=== PATIENT | male | born 1990 | race Caucasian/White ===

== ENCOUNTER 2022-08-24 09:55 | Inpatient (IN) | payer OTHER, MEDICAID, SELFPAY ==
[2022-08-24 10:07] VITALS: BP 129/87; BP 190/100; PULSE 108; PULSE 96; RESP 16; TEMP 37.4; O2SAT 97; BMI 22.6
--- NOTE | 2022-08-24 10:10 | PC.NURSE ---
per EMS report, pt from [facility] completing a section 35 drug treatment program. at the program he became increasingly psychotic, not taking care of himself - refusing to shower, became suicidal. pt has a hx of schizophrenia. pt denies any hx of SI/HI, drug use, AVH, alcohol use.
--- NOTE | 2022-08-24 10:24 | ECG_ITS ---
Test Reason : MEDICAL CLEARANCE Blood Pressure : / mmHG Vent. Rate : 078 BPM Atrial Rate : 078 BPM P-R Int : 132 ms QRS Dur : 086 ms QT Int : 398 ms P-R-T Axes : 073 063 062 degrees QTc Int : 453 ms Normal sinus rhythm Possible Left atrial enlargement Borderline ECG No previous ECGs available Referred By: Kinga Bello Electronically Signed By:LAUREL HILLS MD
--- NOTE | 2022-08-24 10:31 | ED.PSYCH ---
HPI - Psych General Chief Complaint: Psychiatric Symptoms Stated Complaint: failure to thrive sec 35 Time Seen by Provider: 08/24/22 10:13 Source: patient Mode of arrival: ambulatory Limitations: no limitations History of Present Illness HPI Narrative: Patient is the 32-year-old male c PMHx of schizophrenia who presents to the ED today via EMS as a section 12 for reports of increased psychosis and SI. He is currently at [facility] where he has been completing a section 35 treatment for the past 2 months. He currently has no complaints aside from some anxiety and mild lower back pain that he attributes to being at the program and how they treat him there. He denies any current SI/HI, plans of harming himself, known trauma, depression, hallucinations, IVDU/drug abuse, and ETOH abuse. He denies any fevers, chills, GREWAL, neck pain, cough, chest pain, abdominal pain, N/V/D, dysuria, and hematuria. Reports having a ride and place to stay in the [facility] upon discharge. MD complaint: anxiety Onset (ago): month(s) Duration: constant History of same: No Relieving factors: none Exacerbating factors: none Associated psychiatric symptoms: none Associated symptoms: other (lower back pain) Treatments prior to arrival: none Related Data Home Medications Medication Instructions Recorded Confirmed methadone 10 mg/mL oral concentrate 40 mg PO DAILY 08/24/22 08/24/22 Allergies Allergy/AdvReac Type Severity Reaction Status Date / Time No Known Allergies Allergy Verified 08/24/22 10:24 Review of Systems Review of Systems: Constitutional : No Fever, No Chills ENT/Mouth : No Ear Pain, No Nasal Congestion, No sore throat Eyes: No Eye Pain, No Swelling, No Redness Cardiovascular : No Chest Pain, No SOB Respiratory : No Cough, No Sputum, No Dyspnea Gastrointestinal : No ingestions, No Nausea, No Vomiting, No Diarrhea, No Hematochezia, No Melena Genitourinary : No Dysuria, No Urinary Frequency, No Hematuria Musculoskeletal : + lower back pain, No Myalgias Skin : No Skin Lesions, No rash Neuro : No Weakness, No Numbness, No Paresthesias, No Dizziness, No Headache Psych : + Anxiety, No Depression, No SI, No thoughts of self injury, No HI, No AVH, Heme/Lymph: No Lymphadenopathy Endocrine : No Polyuria, No Polydipsia Yes all other systems are reviewed and are negative [facility] Past Medical History Attestation statement: The following information was validated with the patient. Source: old records reviewed and nursing notes reviewed Social History Social History Advance Directives: No Advance Directives Information Provided: No Physical Exam Vital Signs: Vital Signs: Last Vital Signs Temp 99.3 F 08/24/22 10:07 Pulse 96 08/24/22 10:07 Resp 16 08/24/22 10:07 BP 129/87 08/24/22 10:07 Pulse Ox 97 08/24/22 10:07 O2 Del Method 08/24/22 10:07 BMI result Body Mass Index 22.6 vital signs have been reviewed as normal and appeared to be correct. Blood pressure normal. Heart rate normal. Respiration rate normal. Temperature normal. Oxygen saturation normal. Appearance: Alert. Oriented X3. No acute distress. Head: Normal external exam. Normocephalic. Atraumatic. Eyes: PERRLA. EOMI. Conjunctiva and sclera normal. Eyelids normal. ENT: Moist mucous membranes. No trismus noted. No drooling noted. No muffled voice noted. Neck: Normal inspection. Neck supple. FROM. No adenopathy. Thyroid Normal. No meningeal signs. CVS: Normal heart rate and rhythm. Heart sound normal. No murmurs noted. Pulses normal throughout. Respiratory: No respiratory distress. Painless inspiration. Breath sounds normal. No wheezes/rales/rhonchi noted. Chest nontender. No accessory muscle usage noted or decreased air movement noted. Abdomen: Soft and nontender. Bowel sounds normal in all 4 quadrants. No distention noted. No organomegaly noted. No visible injury noted. Back: Pain with palpation along the lower right back. No CVA tenderness. Full range of motion noted. Skin: Skin warm and dry. Normal skin color. Normal skin turgor. No rashes/lesions/lacerations noted. Extremities: No lower extremity edema. Extremities exhibit normal range of motion. Extremities nontender. Neuro: Oriented X 3. No motor deficit. No sensory deficit. Reflexes normal. CN's II-XII intact bilaterally? Psych: Appearance grossly normal, unkept, mental status normal, speech and movement normal, speech clear. Is cooperative. Normal thought process. Normal thought content. Normal good insight. Judgment good. Course Course Course Narrative: 10:30am - Patient is the 32-year-old male c PMHx of schizophrenia who presents to the ED today via EMS as a section 12 from [facility] where he has been completing section 35 treatment for the past couple months. He currently has no complaints aside from some anxiety and mild lower back pain. Patient denies any SI/HI/auditory visualizations thoughts of self-injury or recent drug or alcohol usage. Plan: Labs, UA, drugs of abuse, COVID swab and re-evaluate. Reevaluation(s) Reevaluation #1: - UA, drug screen negative. COVID negative. EKG shows NSR, 78 bpm, QTc 453. Patient is currently refusing labs, states he does not want to be stabbed by a needle. - CARE Team received a call from [facility]- Pt was assessed by [facility] on 08/21 for decompensation? and psychosis.? Pt was offered psychiatric medication while there but declined. Pt has a diagnosis of Schizophrenia. Pt was found IPLOC. Pt has completed his 90 day treatment at [facility] and does not need to return. Pt is a [facility] bedsearch. Therefore will continue to monitor. Time: 11:00 [facility] - Psych Medical Records Attestation: I reviewed the patient's medical records. Lab Data Attestation: I reviewed the patient's lab results. Labs: Lab Results 08/24/22 08/24/22 08/24/22 Range/Units 10:46 11:10 11:10 Urine Color Yellow Urine Appearance Clear Urine pH 5.5 (5.0-9.0) Ur Specific [place] 1.020 (1.005-1.025) Urine Protein Negative (Neg-Trace) mg/dL Urine Glucose (UA) Negative (Negative) mg/dL Urine Ketones Negative (Negative) mg/dL Urine Blood Negative (Negative) Urine Nitrite Negative (Negative) Ur Leukocyte Esterase Negative (Negative) Urine Opiates Screen Not Detected (Not Detect) Urine Fentanyl Screen Not Detected (Not Detect) Ur Barbiturates Screen Not Detected (Not Detect) Ur Phencyclidine Scrn Not Detected (Not Detect) Ur Amphetamines Screen Not Detected (Not Detect) U Benzodiazepines Scrn Not Detected (Not Detect) Urine Cocaine Screen Not Detected (Not Detect) U Marijuana (THC) Screen Not Detected (Not Detect) COVID-19 (JESSICA) Negative (Negative) COVID-19 Clin Com See Note Discharge Plan Discharge Clinical Impression: Acute anxiety, Schizophrenia Patient Disposition: Admitted As Inpatient Interventions: Admission Worksheet (ED) Last Done: 08/24/22 16:18 Discharge Date/Time: 08/24/22 16:18
--- NOTE | 2022-08-24 10:45 | PC.NURSE ---
pt refusing blood work at this time. Kinga HAGER aware.
--- NOTE | 2022-08-24 10:46 | MHC.CARE ---
CARE Team received a call from [facility]- Pt was assessed by [facility] Crisis on 08/21 for decompensation and psychosis. Pt was offered psychiatric medication while there but declined. Pt has a diagnosis of Schizophrenia. Pt was found IPLOC. Pt has completed his 90 day treatment at [facility] and does not need to return. Pt is a [facility] bedsearch
[2022-08-24] MEDS: diazePAM 2 MG TABLET PO (11:04)
[2022-08-24] MEDS: cloNIDine HCL 0.1 MG TABLET PO (11:04)
[2022-08-24 11:10] LABS: COVID-19 Test Negative (Negative); IDNOW Serial# 55D5AD1C
[2022-08-24 11:24] LABS: Appearance Urine Clear; Color Urine Yellow; Glucose Urine UA Negative (Negative); Leukocyte Esterase Urine Negative (Negative); Nitrite Urine Negative (Negative); PH 5.5 (5.0-9.0); Urine Blood Negative (Negative); Urine Ketones Negative (Negative); Urine Protein Negative (Neg-Trace)
[2022-08-24 11:37] LABS: Amphetamine Screen Urine Not Detected (Not Detect); Barbiturates, Urine Not Detected (Not Detect); Benzodiazepines Screen Urine Not Detected (Not Detect); Cannabinoid Screen Urine Not Detected (Not Detect); Cocaine Screen Urine Not Detected (Not Detect); Fentanyl, urine Not Detected (Not Detect); Opiate Screen Urine Not Detected (Not Detect); Phencyclidine Screen Urine Not Detected (Not Detect)
--- NOTE | 2022-08-24 13:54 | PHA.MEDREC ---
Pharmacy Consult ? Medication Reconciliation Pharmacy has completed the [facility]; woman that I spoke to said she required a release form. Spoke to Swetha in pod who got pt to sign release form and faxed back to facility, then Swetha called me to tell me that the facility was asking us for a current med list. Swetha told me she was told by [facility] that pt got 40mg methadone today and pt should be taking perphenazine 4mg TID. As also annotated in the notes, pt was refusing to take new psych meds and told Swetha that he has not been taking any medications. I only put the 40mg methadone in the med rec as recent claim history doesn't reflect anything current and there is no other way to verify.
--- NOTE | 2022-08-24 13:55 | PC.NURSE ---
pt presents as paranoid and appears to be thought blocking when talking with staff. he has been standing in his room with limited ambulation, he does appear to be gesturing at times and responding to internal stimuli. pt avoidant of staff at the nurses station, occasionally peering at staff suspiciously and will continue to double check and look back at staff. pt is in behavioral control and has been cooperative aside from completing blood work. pt just reports it will hurt to get ,y blood drawn. I'm not doing it . t/w required a release form to send to [facility] to get pts medication verification and pt was very focused on the paperwork he needed to sign, reading every bulletpoint several times. pt at the time, pt also perseverated several times the same questions.
[2022-08-24 18:00] VITALS: RESP 16
[2022-08-24] MEDS: Nicotine Polacrilex 2 MG GUM 4 MG BUCCAL ×2 (19:33→22:50)
--- NOTE | 2022-08-24 20:36 | PC.ADMIT ---
pt is a 32 year old male who presented to [facility] with psychosis. pt has just completed treatment about [facility](completion letter is in belongings in closet) 2 days ago. pt decompensated after not taking his meds for 48 hours after leaving [facility]. pt tox screen is positive for alcohol. pt has a H history of opioid use and takes methadone(which is in the chart and has been verified by the ED) during admission, pt appears paranoid and didn't want to answer questions completely, saying do I have to answer that? . pt seemed to want the admission process to end. pt seems social with other pt and wanted his belongings. pt is from the [facility], so [facility] didn't have too many medical records to pull about his other inpatient stays. pt did not want to talk about his address and his past. pt refused nighttime meds.
[2022-08-25 06:00] VITALS: BP 109/58; PULSE 88; RESP 16; TEMP 36.2; O2SAT 94
[2022-08-25] MEDS: Nicotine Polacrilex 2 MG GUM 4 MG BUCCAL ×4 (06:54→17:34)
[2022-08-25] MEDS: methADONE HCl 20 MG/2 ML ORAL.CONC 40 MG PO (08:09)
--- NOTE | 2022-08-25 11:46 | P.HPPS_ITS ---
HPI Date of Service: 08/25/22 Chief Complaint: Psychosis/PARANOIA Sources of Information: patient interviewed, chart reviewed and crisis/core team assessment reviewed Additional Sources of Information: HOSPITAL NOTES REVIEWED PATIENT REFUSED TO BE INTERVIEWED HPI Subjective Notes: Diggs Warning and Section 12B Healthcare Proxy: No Narrative: THE PATIENT IS A 32-YEAR-OLD MALE REFERRED FROM THE EMERGENCY ROOM INITIALLY REFERRED TO THE EMERGENCY ROOM FROM [facility]. He had been initially assessed by the crisis team at the [facility] and then referred for inpatient treatment The patient had originally been admitted to [facility] on a Section 35 in June of 2022 the patient reportedly been refusing perphenazine at [facility] and had become threatening while there reportedly posturing physically and picking up a plastic knife. According to [facility] the patient was having a difficult time taking care of basic hygiene and according to the crisis evaluate patient began to declined services at [facility] not engage in any groups became increasingly isolated and fearful. Reportedly the patient in the crisis of alcohol has past schizophrenia diagnosis was on perphenazine and there may have been a Banks order and DMH involvement in the past. Patient refused any labs in the emergency room he has refused to sign releases The patient has taken methadone refusing to take perphenazine Past Psychiatric History: Reported history of psychosis DMH involvement was p rescribed perphenazine Medical Evaluation Reviewed: Yes Patient refusing labs [facility] Medical History (Updated 08/25/22 @ 15:30 by Palbo Subramanian MD) Opioid use disorder, severe, on maintenance therapy Narrative: Unknown at this time Family History: Not known Social History: Patient reportedly homeless has had DMH involvement the past his mother is Shara fully note telephone [phone] Substance History: Reported history of intravenous heroin use patient on methadone replacement Trauma History: Unknown Diagnostics Vital Signs (24Hr): Vital Signs - 24 hr 08/24/22 18:00 08/25/22 06:00 Temperature 97.1 F Pulse Rate 88 Respiratory Rate 16 16 Blood Pressure 109/58 L Pulse Oximetry 94 Oxygen Delivery Method Room Air BMI result Body Mass Index 22.6 Labs Labs: Laboratory Results - last 48 hr 08/24/22 08/24/22 08/24/22 10:46 11:10 11:10 Urine Color Yellow Urine Appearance Clear Urine pH 5.5 Ur Specific [place] 1.020 Urine Protein Negative Urine Glucose (UA) Negative Urine Ketones Negative Urine Blood Negative Urine Nitrite Negative Ur Leukocyte Esterase Negative Urine Opiates Screen Not Detected Urine Fentanyl Screen Not Detected Ur Barbiturates Screen Not Detected Ur Phencyclidine Scrn Not Detected Ur Amphetamines Screen Not Detected U Benzodiazepines Scrn Not Detected Urine Cocaine Screen Not Detected U Marijuana (THC) Screen Not Detected COVID-19 (JESSICA) Negative COVID-19 Clin Com See Note Meds/Allergies Meds Home Medications Medication Instructions Recorded Confirmed Type methadone 10 mg/mL oral concentrate 40 mg PO DAILY 08/24/22 08/24/22 History Allergies Allergies Allergy/AdvReac Type Severity Reaction Status Date / Time No Known Allergies Allergy Verified 08/24/22 10:24 Mental Status Exam Mental Status Exam Narrative: The patient is ambulating up and down the [place] he is dressed in brown hooded sweat shirt he is diaphoretic when seen 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 Refused to answer questions regarding safety to himself or others hallucinations delusional material. Insight judgment impaired impulse control fair he was not directly threatening at this time Assessment & Plan Assessment & Plan (1) Chronic schizophrenia with acute exacerbation: Status: Acute Code(s): F20.9 - Schizophrenia, unspecified Assessment and Plan: Continue perphenazine encourage medication compliance get additional history (2) Opioid use disorder, severe, on maintenance therapy: Status: Acute Code(s): F11.20 - Opioid dependence, uncomplicated Plan Patient admitted on a Section 12 B try and get additional history including medication diagnosis risk history encourage medication acceptance encourage laboratory evaluation Try to educate patient regarding status of his admission on a 12 b and diggs warning. Trying get additional information regarding diagnosis history of treatment. Reportedly the patient has had DMH in the past would most likely benefit from long-acting injectable continue methadone assess safety to himself and others. Patient fearful intense paranoia and irritability monitor food and fluid intake may need to file for treatment plan and section 7/8 this point patient unable to engage and treatment and develop any kind of safety plan. Had intermittently been refusing food Patient educated on: other (12 b status diggs warning) Informed Consent: further education needed Reason for continued inpatient stay Substantial Risk for: harm to others, inability to function and rapid decompensation
[2022-08-25 17:15] VITALS: BP 142/89; PULSE 100; RESP 16; TEMP 36.6; O2SAT 96
[2022-08-26] MEDS: Nicotine Polacrilex 2 MG GUM 4 MG BUCCAL ×5 (01:38→23:54)
[2022-08-26] MEDS: methADONE HCl 20 MG/2 ML ORAL.CONC 40 MG PO (08:24)
[2022-08-26] MEDS: LORazepam 1 MG TABLET 2 MG PO ×3 (11:45→23:54)
--- NOTE | 2022-08-26 17:22 | P.PNPSI_ITS ---
Subjective Subjective Date of Service: 08/26/22 Reason For Visit: Psychosis/PARANOIA Subjective Notes: Section 12B Healthcare Proxy: No Guardianship: No Interim History: The patient is pacing restless increasingly diaphoretic minimally engaged refusing to discuss any issues related to treatment or discharge. Asking about increasing methadone in case he is tortured. Makes oblique comments about being harrased generally refused to discuss anything with this journalists and other writers refused to discuss what he would do after discharge or how he could continue methadone stating it is personal patient with periods of agitation refusing perphenazine Repeatedly asking for Ativan refusing perphenazine Medication Compliance: No Mental Status Exam Mental Status Exam Narrative: The patient is ambulating up and down the [place] he is dressed in brown hooded sweat shirt he is diaphoretic minimally engaged saying he did not want to speak to this journalists and other writers how everything is private mood anxious irritable pacing restless briefly references statements about being harrased needing medication for this impulse control appears tenuous Irritable reactive suspicious minimal insight Diagnostics Vital Signs (24Hr): BMI result Body Mass Index 22.6 Medications Medications Current Medications Acetaminophen (Acetaminophen 325 Mg Tablet) 650 mg PO Q6H PRN PRN Reason: Headache/Pain Mild Scale (1-3) Al Hydroxide/Mg Hydroxide (Magnesium Hydrox/Alum Hydrox 30 Ml Oral.Susp) 30 ml PO Q6H PRN PRN Reason: Heartburn/Nausea Diphenhydramine HCl (Diphenhydramine Hcl 25 Mg Capsule) 50 mg PO Q4H PRN PRN Reason: agitation Haloperidol (Haloperidol 5 Mg Tablet) 5 mg PO Q4H PRN PRN Reason: agitation Hydroxyzine HCl (Hydroxyzine Hcl 25 Mg Tablet) 25 mg PO Q6H PRN PRN Reason: Anxiety Lorazepam (Lorazepam 1 Mg Tablet) 2 mg PO Q4H PRN PRN Reason: agitation Last Admin: 08/26/22 16:07 Dose: 2 mg Magnesium Hydroxide (Milk Of Magnesia 30 Ml Oral.Susp) 30 ml PO DAILY PRN PRN Reason: Constipation Methadone HCl (Methadone Hcl 20 Mg/2 Ml Oral.Conc) 40 mg PO DAILY DERECK Last Admin: 08/26/22 08:24 Dose: 40 mg Nicotine Polacrilex (Nicotine Polacrilex 2 Mg Gum) 4 mg BUCCAL Q2H PRN PRN Reason: Nicotine Cravings Last Admin: 08/26/22 16:00 Dose: 4 mg Perphenazine (Perphenazine 4 Mg Tablet) 4 mg PO BID DERECK Last Admin: 08/26/22 08:34 Dose: Not Given Trazodone HCl (Trazodone Hcl 50 Mg Tablet) 50 mg PO BEDTIME PRN PRN Reason: Insomnia Allergies Allergies Allergy/AdvReac Type Severity Reaction Status Date / Time No Known Allergies Allergy Verified 08/24/22 10:24 Assessment & Plan Assessment & Plan (1) Chronic schizophrenia with acute exacerbation: Status: Acute Code(s): F20.9 - Schizophrenia, unspecified Assessment and Plan: Continue perphenazine encourage medication compliance get additional history (2) Opioid use disorder, severe, on maintenance therapy: Status: Acute Code(s): F11.20 - Opioid dependence, uncomplicated Plan Patient paranoid agitated anxious on a Section 12 B will most likely need to file for treatment plan section 7/8 paranoid irritable easily agitated focus on methadone and benzodiazepines refusing antipsychotic treatment unwilling to have labs or to engage regarding getting history or discharge planning feeling like he is going to be harmed I spent minutes with the patient and/or on the patient floor today, greater than?50% of which was spent counseling/coordinating care. Reason for contiued inpatient stay Substantial Risk for: inability to function and rapid decompensation
[2022-08-27] MEDS: Nicotine Polacrilex 2 MG GUM 4 MG BUCCAL ×3 (05:26→13:01)
[2022-08-27] MEDS: LORazepam 1 MG TABLET 2 MG PO (05:26)
[2022-08-27 06:00] VITALS: BP 120/91; PULSE 72; TEMP 37.3; O2SAT 98
[2022-08-27] MEDS: methADONE HCl 20 MG/2 ML ORAL.CONC 40 MG PO (08:59)
--- NOTE | 2022-08-27 09:06 | P.PNPSI_ITS ---
Subjective Subjective Date of Service: 08/27/22 Reason For Visit: Psychosis/PARANOIA Interim History: Patient is on a 12 b which expires today Talked with patient today. Although guarded and irritable he was willing to engage and demonstrated a linear and organized thought process. He denies any SI or HI. He denies auditory hallucinations. He says he does not want medication at all and shares appropriately that he is bothered that staff keeps harassing him about this when he has already said no; he also shared he read about his rights in the hand book and clarified that he is allowed to say no to which telegraphic typewriter operator chief agreed. Patient said he never wanted to be here in the and that they sent him here from [facility] where he did not want to be either. He knows 12b is due today and he wants discharge. Patient says has a place to stay at his friend's; he reports he gets methadone at [facility], will follow up with them on his own and does not want or need hospital to assist. While Patient clearly does not want to interact with staff, he clearly demonstrates that he is able to engage and able to be organized. Patient's mother came to the unit yesterday and visited with patient. To better assess his safety, Deputy Fire Marshal called to hear her report, though telegraphic typewriter operator chief did not give out any information. She said he is the exact same as he was before he went to [place] and that he is at his baseline. She is frustrated with him because of his chronic substance abuse which she cites as the reason for his decline; she shared until 10 years ago, he was previously on medications for about 5 years and did very well, stable, had his own apartment, pay his own bills, was a pleasure to be around and took good care of himself and his things. She says once he got addicted to heroin he stopped taking his medications saying he did need them anymore. She reports that for the past 10 years, off all medications, he has been living on his own. Sometimes she has let him stay with her but because he continued to use in her house and steal from her to pay for drugs, she no longer allows this. She reports that he is indeed able to take care of himself in the community; he always finds a place to sleep and mostly goes in-between staying at different friends houses; he is consistently able to get himself food and appropriately uses food stamps. She denies that he has ever been aggressive towards her and that she has never been afraid of him. She also says that he is never been aggressive in the community either. She says that he is odd and will walk down the street talking and laughing to himself however avoids confrontations. She shared that few months ago, he was laughing hysterically and someone on the street said something challenging to him; patient responded with a verbal threat back, however he did so as he was walking away on his own. The police were later called, found him to be intoxicated and picked him up; he was assessed and the court doctor and bar helper agreed that he was appropriate for section 35 rather than inpatient psychiatric unit which is how he got to [place]. Diagnostics Vital Signs (24Hr): BMI result Body Mass Index 22.6 Medications Medications Current Medications Acetaminophen (Acetaminophen 325 Mg Tablet) 650 mg PO Q6H PRN PRN Reason: Headache/Pain Mild Scale (1-3) Al Hydroxide/Mg Hydroxide (Magnesium Hydrox/Alum Hydrox 30 Ml Oral.Susp) 30 ml PO Q6H PRN PRN Reason: Heartburn/Nausea Diphenhydramine HCl (Diphenhydramine Hcl 25 Mg Capsule) 50 mg PO Q4H PRN PRN Reason: agitation Haloperidol (Haloperidol 5 Mg Tablet) 5 mg PO Q4H PRN PRN Reason: agitation Hydroxyzine HCl (Hydroxyzine Hcl 25 Mg Tablet) 25 mg PO Q6H PRN PRN Reason: Anxiety Lorazepam (Lorazepam 1 Mg Tablet) 2 mg PO Q4H PRN PRN Reason: agitation Last Admin: 08/27/22 05:26 Dose: 2 mg Magnesium Hydroxide (Milk Of Magnesia 30 Ml Oral.Susp) 30 ml PO DAILY PRN PRN Reason: Constipation Methadone HCl (Methadone Hcl 20 Mg/2 Ml Oral.Conc) 40 mg PO DAILY [facility] Last Admin: 08/27/22 08:59 Dose: 40 mg Nicotine Polacrilex (Nicotine Polacrilex 2 Mg Gum) 4 mg BUCCAL Q2H PRN PRN Reason: Nicotine Cravings Last Admin: 08/27/22 05:26 Dose: 4 mg Perphenazine (Perphenazine 4 Mg Tablet) 4 mg PO BID [facility] Last Admin: 08/26/22 21:00 Dose: Not Given Trazodone HCl (Trazodone Hcl 50 Mg Tablet) 50 mg PO BEDTIME PRN PRN Reason: Insomnia Allergies Allergies Allergy/AdvReac Type Severity Reaction Status Date / Time No Known Allergies Allergy Verified 08/24/22 10:24 Assessment & Plan Assessment & Plan (1) Chronic schizophrenia with acute exacerbation: Status: Acute Code(s): F20.9 - Schizophrenia, unspecified Assessment and Plan: Continue perphenazine encourage medication compliance get additional history (2) Opioid use disorder, severe, on maintenance therapy: Status: Acute Code(s): F11.20 - Opioid dependence, uncomplicated Plan Patient paranoid agitated anxious on a Section 12 B will most likely need to file for treatment plan section 7/8 paranoid irritable easily agitated focus on methadone and benzodiazepines refusing antipsychotic treatment unwilling to have labs or to engage regarding getting history or discharge planning feeling like he is going to be harmed 08/27 Patient is on a 12 b which expires today Talked with patient today. Although guarded and irritable he was willing to engage and demonstrated a linear and organized thought process. He denies any SI or HI. He denies auditory hallucinations. He says he does not want medication at all and shares appropriately that he is bothered that staff keeps harassing him about this when he has already said no; he also shared he read about his rights in the hand book and clarified that he is allowed to say no to which telegraphic typewriter operator chief agreed. Patient said he never wanted to be here in the 1st place and that they sent him here from [facility] where he did not want to be either. He knows 12b is due today and he wants discharge. Patient says has a place to stay at his friend's; he reports he gets methadone at [facility], will follow up with them on his own and does not want or need hospital to assist. While Patient clearly does not want to interact with staff, he clearly demonstrates that he is able to engage and able to be organized. Patient's mother came to the unit yesterday and visited with patient. To better assess his safety, Deputy Fire Marshal called to hear her report, though telegraphic typewriter operator chief did not give out any information. She said he is the exact same as he was before he went to [place] and that he is at his baseline. She is frustrated with him because of his chronic substance abuse which she cites as the reason for his decline; she shared until 10 years ago, he was previously on medications for about 5 years and did very well, stable, had his own apartment, pay his own bills, was a pleasure to be around and took good care of himself and his things. She says once he got addicted to heroin he stopped taking his medications saying he did need them anymore. She reports that for the past 10 years, off all medications, he has been living on his own. Sometimes she has let him stay with her but because he continued to use in her house and steal from her to pay for drugs, she no longer allows this. She reports that he is indeed able to take care of himself in the community; he always finds a place to sleep and mostly goes in-between staying at different friends houses; he is consistently able to get himself food and appropriately uses food stamps. She denies that he has ever been aggressive towards her and that she has never been afraid of him. She also says that he is never been aggressive in the community either. She says that he is odd and will walk down the street talking and laughing to himself however avoids confrontations. She shared that few months ago, he was laughing hysterically and someone on the street said something challenging to him; patient responded with a verbal threat back, however he did so as he was walking away on his own. The police were later called, found him to be intoxicated and picked him up; he was assessed and the court doctor and bar helper agreed that he was appropriate for section 35 rather than inpatient psychiatric unit which is how he got to [place]. Impression/plan: Patient is on a 12 b which expires today After assessing patient and gathering collateral, telegraphic typewriter operator chief cannot testify that this patient is in imminent risk for harm to self or others. Patient does have psychotic symptoms and remains vulnerable to relapse and further decompensation; because of his itinerant lifestyle and chronic substance abuse it is likely that patient will continue to intermittently find himself in challenging situations. However, this is how patient has been living in the community, on his own, without medications for the past 10 years. Deputy Fire Marshal cannot testify that patient is unable to care for himself in the community; he denies any SI/HI and has no hx of suicidality to this writers knowledge. Although patient has been guarded and not willing to engage with staff he has not demonstrated any unsafe behavior. Patient is at his baseline and telegraphic typewriter operator chief does not find that this patient rises to the level of involuntary commitment. Deputy Fire Marshal discussed case with Dr. Subramanian who admitted patient has has followed him on the unit. Dr. Subramanian said he has changed his initial assessment and agrees that patient is not in imminent risk for harm to self or others and does not rise to the level of involuntary commitment. Patients request for discharge honored. I spent minutes with the patient and/or on the patient floor today, greater than?50% of which was spent counseling/coordinating care. Patient educated on: diagnosis, medication risk/benefits and substance abuse Informed Consent: understands and further education needed Reason for contiued inpatient stay Substantial Risk for: stable for discharge
--- NOTE | 2022-08-27 12:30 | PM.PSYDC ---
DS: Providers Provider Date of Service: 08/27/22 Date of admission: 08/24/22 15:36 Date of discharge: 08/27/22 Primary care physician: None Physician Attending physician on admission: Pablo Subramanian Attending physician on discharge: Silverio Thompson DS: Diagnosis Discharge Diagnosis (1) Chronic schizophrenia with acute exacerbation: Status: Acute (2) Opioid use disorder, severe, on maintenance therapy: Status: Acute DS: Medications Discharge Medications Home Medications: Home Medications Medication Instructions Recorded Confirmed methadone 10 mg/mL oral concentrate 40 mg PO DAILY 08/24/22 08/24/22 Mental Status Exam Mental Status Exam Narrative: Pt is alert and oriented; behavior is guarded, minimally cooperative; patient is not in distress; dressed in casual attire with unkempt hair and marginal hygiene, though not malodorous; mood is described as good and affect constricted; eye contact appropriate; Speech is normal rate, volume and prosody and not pressured; some psychomotor agitation present as patient frequently paces [place]; thought process is organized and goal directed; Thought content is on discharge; otherwise pertinent to relevant topics and without any delusional content or paranoid ideations expressed or solicited; denies any SI/HI. Denies AVH. Patients insight and judgment are impaired but adequate. Data Data Completed and Pending Completed studies during hospitalization [Text1]: 08/24/22 08/24/22 08/24/22 10:46 11:10 11:10 Urine Color Yellow Urine Appearance Clear Urine pH 5.5 Ur Specific Cash 1.020 Urine Protein Negative Urine Glucose (UA) Negative Urine Ketones Negative Urine Blood Negative Urine Nitrite Negative Ur Leukocyte Esterase Negative Urine Opiates Screen Not Detected Urine Fentanyl Screen Not Detected Ur Barbiturates Screen Not Detected Ur Phencyclidine Scrn Not Detected Ur Amphetamines Screen Not Detected U Benzodiazepines Scrn Not Detected Urine Cocaine Screen Not Detected U Marijuana (THC) Screen Not Detected COVID-19 (JESSICA) Negative COVID-19 Clin Com See Note DS: Summary Hospital Course Hospital Course: Patient paranoid agitated anxious on a Section 12 B will most likely need to file for treatment plan section 7/8 paranoid irritable easily agitated focus on methadone and benzodiazepines refusing antipsychotic treatment unwilling to have labs or to engage regarding getting history or discharge planning feeling like he is going to be harmed 08/27 Patient is on a 12 b which expires today Talked with patient today.? Although guarded and irritable he was willing to engage and demonstrated a linear and organized thought process.? He denies any SI or HI.? He denies auditory hallucinations.? He says he does not want medication at all and shares appropriately that he is bothered that staff keeps harassing him about this when he has already said no; he also shared he read about his rights in the hand book and clarified that he is allowed to say no to which sheet writer agreed.? Patient said he never wanted to be here in the [facility]st place and that they sent him here from [facility] where he did not want to be either. He knows 12b is due today and he wants discharge.? Patient says has a place to stay at his friend's; he reports he gets methadone at [facility], will follow up with them on his own and does not want or need hospital to assist. While Patient clearly does not want to interact with staff, he clearly demonstrates that he is able to engage and able to be organized. Patient's mother came to the unit yesterday and visited with patient. To better assess his safety, Supervisor Cell Operation called to hear her report, though sheet writer did not give out any information.? She said he is the exact same as he was before he went to [place] and that he is at his baseline.? She is frustrated with him because of his chronic substance abuse which she cites as the reason for his decline; she shared until 10 years ago, he was previously on medications for about 5 years and did very well, stable, had his own apartment, pay his own bills, was a pleasure to be around and took good care of himself and his things.? She says once he got addicted to heroin he stopped taking his medications saying he did need them anymore.? She reports that for the past 10 years, off all medications, he has been living on his own.? Sometimes she has let him stay with her but because he continued to use in her house and steal from her to pay for drugs, she no longer allows this.? She reports that he is indeed able to take care of himself in the community; he always finds a place to sleep and mostly goes in-between staying at different friends houses; he is consistently able to get himself food and appropriately uses food stamps.? She denies that he has ever been aggressive towards her and that she has never been afraid of him.? She also says that he is never been aggressive in the community either.? She says that he is odd and will walk down the street talking and laughing to himself however avoids confrontations.? She shared that few months ago, he was laughing hysterically and someone on the street said something challenging to him; patient responded with a verbal threat back, however he did so as he was walking away on his own.? The police were later called, found him to be intoxicated and picked him up; he was assessed and the court doctor and bonding machine operator agreed that he was appropriate for section 35 rather than inpatient psychiatric unit which is how he got to [place]. Impression/plan: Patient is on a 12 b which expires today After assessing patient and gathering collateral, sheet writer cannot testify that this patient is in imminent risk for harm to self or others.? Patient does have psychotic symptoms and remains vulnerable to relapse and further decompensation; because of his itinerant lifestyle and chronic substance abuse it is likely that patient will continue to intermittently find himself in challenging situations. However, this is how patient has been living in the community, on his own, without medications for the past 10 years. Supervisor Cell Operation cannot testify that patient is unable to care for himself in the community; he denies any SI/HI, has no hx of suicidality to this writers knowledge and sheet writer cannot testify that patient is unsafe. Although patient has been guarded and not willing to engage with staff he has not demonstrated any unsafe behavior. Patient is at his baseline and he does not rise to the level of involuntary commitment.? Supervisor Cell Operation discussed case with Dr. Subramanian who admitted patient has has followed him on the unit. Dr. Subramanian said he has changed his initial assessment and agrees that patient is not in imminent risk for harm to self or others and does not rise to the level of involuntary commitment. Patients request for discharge honored. Time spent discussing smoking cessation with patient: 3 to 10 minutes Status at Discharge Functional status at discharge: independent ambulation Overall status at discharge: patient is back to baseline Time Spent with Patient Time attestation: Total time spent providing and/or coordinating discharge services: Time spent: Greater than 30 minutes Discharge Plan Discharge Anticipated Discharge Date/Time: 08/27/22 13:00 Patient Disposition: Intermediate Discharge Diagnosis: schizophrenia Referrals: Physician,None [Primary Care Provider] - 1 Week Discharge Medications: Continued methadone 10 mg/mL Concentrate 40 mg PO DAILY Discharge Orders: Discharge Order (Routine); Ordered 08/27/22 Ordered By: Silverio Thompson Diet: Regular diet Activity on Discharge: As tolerated Stand Alone Forms: Patient Portal Discharge page Care Plan Goals: Maintain mood and safe behaviors Take medications as prescribed Continue to pursue sobriety Practice coping skills Health Concerns: Mood stability and behaviors Sobriety Plan of Treatment: Consider getting PCP, psychiatric provider Assessment: Risk assessment at time of discharge:? Patient was interviewed prior to discharge and found to be fully oriented and without any SI or HI. Patient has insight and demonstrates good judgment in terms of wanting to pursue treatment. Patient is not in imminent risk of harm to self or others and has a safety plan that includes presenting to the closest ER or calling 911 if feeling unsafe.? Patient has been observed closely by nursing and unit staff throughout admission; patient has not engaged in any behaviors that suggest dangerousness to self or others and has demonstrated appropriate behaviors and impulse control Discharge Date/Time: 08/27/22 13:15
== END 2022-08-27 13:15 | disposition home or self-care (01) | DRG 750 ==
LOC: HO.ED 11:24 → HO.PM5 15:40
PROVIDERS: Physician Assistant Medical; Admitting Provider Psychiatry & Neurology Psychiatry; Emergency Provider Emergency Medicine; Visit Provider Psychiatry & Neurology Psychiatry
DX: F20.9 Schizophrenia, unspecified (principal); R45.851 Suicidal ideations; Z59.01 Sheltered homelessness; F11.20 Opioid dependence, uncomplicated; F41.9 Anxiety disorder, unspecified; F17.210 Nicotine dependence, cigarettes, uncomplicated; Z71.6 Tobacco abuse counseling; Z20.822 Contact with and (suspected) exposure to COVID-19
CPT/HCPCS: 80307; 81003; 87635; 90792; 93005; 99285